=== PATIENT | male | born 1950 | race Caucasian/White ===

== ENCOUNTER → 2020-05-15 08:24 | Outpatient (BNVA) | payer MEDICARE, SELFPAY | PROVIDERS: PCP Internal Medicine; Visit Provider Hospitalist | DX: J44.9 Chronic obstructive pulmonary disease, unspecified (principal); R91.8 Other nonspecific abnormal finding of lung field; I63.9 Cerebral infarction, unspecified | CPT/HCPCS: 99212 ==

== ENCOUNTER → 2020-08-13 08:49 | Outpatient (BNVA) | payer MEDICARE, SELFPAY | PROVIDERS: PCP Internal Medicine; Visit Provider Hospitalist | DX: J41.0 Simple chronic bronchitis (principal); R91.8 Other nonspecific abnormal finding of lung field | CPT/HCPCS: 99212 ==

== ENCOUNTER 2020-08-21 09:42 | Outpatient (REF) | payer MEDICARE, SELFPAY ==
--- NOTE | ~2020-08-21 | PE_ITS ---
EXAMINATION: Fluorine-18 FDG PET/CT Scan CLINICAL INDICATION: Initial treatment management. Pulmonary nodules. PROCEDURE: 69 minutes following the intravenous administration of 15.4 mCi of fluorine 18 FDG, images from the base of the skull to the mid thighs were obtained using a combined PET/CT scanner with CT scan based attenuation correction. No oral contrast was administered. No intravenous contrast was administered. Transverse, coronal, sagittal, and volume reconstruction projections were obtained. The patient's blood glucose as determined by a finger stick, was 60 mg/dl immediately prior to injection. Total CT exam dose-length product 597.53 mGy-cm * These CT images were obtained using dose optimization techniques as appropriate, variously including the following: Automated exposure control * Adjustment of mA and/or kV according to patient size (this includes techniques or standardized protocols for targeted exams where dose is matched to indication/reason for exam; i.e. extremities or head) * Use of iterative reconstruction technique COMPARISON: No previous PET/CT scan is available for comparison. CT scan of the chest dated 07/27/2020 is available for comparison. FINDINGS: (Slice numbers described in this report are numbered superiorly to inferiorly with slice #1 in the head) NECK AND VISUALIZED HEAD: In the right parotid gland is a focus of increased FDG activity, SUVmax 6.2, slice 30/267 corresponding to a subcentimeter soft tissue focus on the CT images. Superior to this is a smaller and less intense FDG avid focus in the apex of the right parotid gland, slice 20/267 and anteriorly in the apex of the left parotid gland a third FDG avid focus of mild intensity is present, slice 30/267. No additional foci of abnormal FDG activity are present in the neck or visualized head. All the other activity in this region appears physiological. There is no cervical lymphadenopathy. THORAX: No foci of abnormal FDG activity are present in the chest. There is a solid nodule in the lingula measuring 1.4 x 0.9 cm in largest transverse dimensions with no abnormal FDG activity. This is at the lower limits of resolution of the FDG PET images. It appears unchanged compared to the prior CT scan dated 07/27/2020. A second smaller solid nodule posteriorly at the base of the left lower lobe measures 0.9 x 0.7 cm and also shows no abnormal FDG activity but is also the lower limits of resolution of the FDG PET images. This is also unchanged from 07/27/2020. Additional subcentimeter nodules visualized on that prior diagnostic CT scan are not well visualized on these nondiagnostic CT images, and all of those are much too small to be characterized on the FDG PET images. There is no pleural or pericardial fluid, or pneumothorax. There is no mediastinal, supraclavicular, or axillary lymphadenopathy. ABDOMEN AND PELVIS: No foci of abnormal FDG activity are present in the abdomen or pelvis. There is diffuse FDG activity of varying intensities present throughout the gastrointestinal tract with no suspicious focal component, likely physiological. There is diverticulosis without evidence of diverticulitis. The hollow viscera are otherwise unremarkable. The liver and spleen are unremarkable. A densely peripherally calcified gallstone is present in the neck of the gallbladder. The gallbladder is otherwise unremarkable. There is some mild perinephric stranding bilaterally, but the kidneys are otherwise unremarkable. There is a nodular opacity measures approximately 1.5 x 0.9 cm in the right adrenal gland. This is of indeterminate density on the CT images and shows no abnormal FDG activity and is probably benign. The left adrenal gland is unremarkable. The pancreas is unremarkable. There is no retroperitoneal, mesenteric, pelvic or inguinal lymphadenopathy. A small fat-containing periumbilical hernia is present. The prostate gland is enlarged measuring 5.6 cm in largest transverse dimension. There is a discrete focus of abnormal FDG activity in the right posterior aspect of the prostate gland showing SUVmax 8.4, slice 221/267. MUSCULOSKELETAL: No foci of abnormal FDG activity are present in the osseous structures. There are degenerative changes in the spine. There is a grade 1 anterolisthesis of L5 on S1. No suspicious sclerotic or lytic lesions are visualized. VASCULAR: Diffuse vascular calcifications including some coronary calcifications are noted. 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 PET/PET CT fusion skull to thigh IMPRESSION: 1. Several pulmonary nodules are visualized as described above, unchanged in appearance from 07/27/2020. The largest of these are at the lower limits of resolution of the FDG PET images and show no abnormal FDG activity suggesting a benign etiology. The other nodules seen 07/27/2020 are not well visualized, and all of these are too small to be characterized on the FDG PET images. Continued monitoring of these with diagnostic CT imaging in 3-6 months is recommended. 2. An FDG avid focus in the prostate gland is strongly suspicious for malignancy. Urologic consultation is recommended. 3. A right adrenal nodule is suggested but is not well visualized on these nondiagnostic CT images. This shows no abnormal FDG activity suggesting a benign etiology. This could be further characterized with a CT adrenal protocol, if clinically indicated. 4. Bilateral FDG avid parotid foci are present. These are nonspecific, and malignancy cannot be excluded, but benign parotid lesions such as pleomorphic adenomas or Warthin's tumors are frequently FDG avid. The bilaterality is more suggestive of Warthin's tumors. 5. No additional abnormalities suspicious for other metastatic or malignant lesions are noted. 6. Diffuse vascular calcifications including coronary are noted. 7. 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 This could be further characterized with CT angiography, if clinically indicated.
== END 2020-08-21 09:43 | disposition home or self-care (01) ==
LOC: HO.PET 09:42
PROVIDERS: PCP Internal Medicine; Visit Provider Hospitalist
DX: Z13.89 Encounter for screening for other disorder (principal)

== ENCOUNTER → 2020-11-19 09:54 | Outpatient (BNVA) | payer MEDICARE, SELFPAY | PROVIDERS: PCP Internal Medicine; Visit Provider Hospitalist | DX: R91.8 Other nonspecific abnormal finding of lung field (principal); J41.0 Simple chronic bronchitis | CPT/HCPCS: 99212 ==

== ENCOUNTER → 2021-04-09 09:23 | Outpatient (BNVA) | payer MEDICARE, SELFPAY | PROVIDERS: PCP Internal Medicine; Visit Provider Hospitalist | DX: J41.0 Simple chronic bronchitis (principal); R91.8 Other nonspecific abnormal finding of lung field | CPT/HCPCS: 99212 ==

== ENCOUNTER → 2021-04-12 08:29 | Outpatient (BNVA) | payer MEDICARE, SELFPAY | PROVIDERS: PCP Internal Medicine; Visit Provider Surgery | DX: R91.8 Other nonspecific abnormal finding of lung field (principal); I69.354 Hemiplegia and hemiparesis following cerebral infarction affecting left non-dominant side; Z79.899 Other long term (current) drug therapy; Z79.84 Long term (current) use of oral hypoglycemic drugs; Z87.891 Personal history of nicotine dependence; Z86.718 Personal history of other venous thrombosis and embolism | CPT/HCPCS: 99212 ==

== ENCOUNTER 2021-04-16 09:50 | Outpatient (REF) | payer MEDICARE, SELFPAY ==
--- NOTE | 2021-04-16 | PFT_ITS ---
FLOWS: FEV1 67% of predicted at 2.13 L. FVC 76% of predicted at 3.33 L. FEV1 to FVC ratio of 0.61. Positive bronchodilator response. LUNG VOLUMES: Total lung capacity 103% of predicted at 7.26 L. Residual volume 161% of predicted at 4.05 L. Slow vital capacity 70% of predicted at 3.21 L. Expiratory reserve volume 71% of predicted at 0.90 L. Diffusion capacity is mildly decreased, diffusion capacity adjust to normal after correction for alveolar ventilation. IMPRESSION: Moderate obstructive ventilatory defect with positive bronchodilator response. Increased residual volume suggests air trapping. Decreased diffusion capacity suggests emphysema. MD JETHRO Sandhu/MODL / [id number]
== END 2021-04-16 09:51 | disposition home or self-care (01) ==
LOC: HO.RESP 09:50
PROVIDERS: PCP Internal Medicine; Visit Provider Hospitalist
DX: Z01.818 Encounter for other preprocedural examination (principal)
CPT/HCPCS: 94060; 94727; 94729

== ENCOUNTER → 2021-05-17 09:51 | Outpatient (BNVA) | payer MEDICARE, SELFPAY | PROVIDERS: PCP Internal Medicine; Visit Provider Surgery | DX: R91.8 Other nonspecific abnormal finding of lung field (principal); I82.409 Acute embolism and thrombosis of unspecified deep veins of unspecified lower extremity; Z79.899 Other long term (current) drug therapy; Z79.84 Long term (current) use of oral hypoglycemic drugs; Z87.891 Personal history of nicotine dependence; Z86.73 Personal history of transient ischemic attack (TIA), and cerebral infarction without residual deficits | CPT/HCPCS: 99212 ==

== ENCOUNTER 2021-05-29 07:22 | Outpatient (REF) | payer MEDICARE, SELFPAY ==
--- NOTE | ~2021-05-29 | CT_ITS ---
EXAMINATION: CT CHEST WITHOUT CONTRAST CLINICAL INFORMATION: Other nonspecific abnormal finding of lung field. Pulmonary nodules. COMPARISON: CT chest 04/01/2021. TECHNIQUE: Multidetector volumetric CT imaging of the chest was done. Axial MIP volume rendering provided. Sagittal and coronal reformatted images were obtained. This CT examination was performed using dose optimization techniques as appropriate, variously including the following: *Automated exposure control *Adjustment of mA and/or kV according to patient size (this includes techniques or standardized protocols for targeted exams where dose is matched to indication/reason for exam; i.e. extremities or head) *Use of iterative reconstruction technique DLP: 170 mGy-cm FINDINGS: LUNGS: Mild emphysema. An irregular 1.2 x 0.9 cm nodule in the right upper lobe not significantly changed from most recent prior exam from 04/01/2021 but is new compared with the prior exam from 07/27/2020. New 3 mm nodule in the anterior left upper lobe (240/627). A 2 mm nodule in the superior segment of the right lower lobe is less conspicuous compared with prior. A 1.1 cm ovoid nodule in the left lower lobe is stable (400/627). Linear scarring/atelectasis in the lingula is stable. MEDIASTINUM: Normal heart size. No pericardial effusion. Coronary artery calcifications. No bulky mediastinal lymphadenopathy. Visualized thyroid is unremarkable. PLEURA: There is no pleural effusion. No pleural mass or thickening. AXILLAE: No lymphadenopathy. UPPER ABDOMEN: Cholelithiasis. Mild thickening of the left adrenal gland without nodularity. OSSEOUS STRUCTURES: Degenerative changes in the spine. CT/CT chest wo con IMPRESSION: The irregular 1.2 x 0.9 cm nodule in the right upper lobe has not significantly changed compared with the most recent exam but is new compared with the exam from 07/27/2020. This remains suspicious for malignancy. Recommend PET/CT and/or biopsy to further evaluate. New 3 mm nodule in the anterior left upper lobe. Additional nodules described above are overall stable. Extensive coronary artery calcifications. Cholelithiasis.
== END 2021-05-29 07:23 | disposition home or self-care (01) ==
LOC: HO.CT 07:22
PROVIDERS: Visit Provider Surgery
DX: R91.8 Other nonspecific abnormal finding of lung field (principal)
CPT/HCPCS: 71250

== ENCOUNTER → 2021-06-07 08:53 | Outpatient (BNVA) | payer MEDICARE, SELFPAY | PROVIDERS: PCP Internal Medicine; Visit Provider Surgery | DX: R91.8 Other nonspecific abnormal finding of lung field (principal); Z79.899 Other long term (current) drug therapy; Z87.891 Personal history of nicotine dependence | CPT/HCPCS: 99212 ==

== ENCOUNTER 2021-06-25 11:05 | Outpatient (REF) | payer MEDICARE, OTHER, SELFPAY ==
--- NOTE | ~2021-06-25 | PE_ITS ---
EXAMINATION: PET CT fusion skull to thigh Subsequent treatment management - PS CLINICAL INFORMATION: Pulmonary nodule COMPARISON: Chest CT 05/29/2021 and earlier. Prior PET CT 323 TECHNIQUE: Fingerstick blood sugar prior to exam was 85 mg/dL. 17.0 mCi fluorine-18 FDG administered IV. Following approximately 45 minutes of uptake, multibed PET acquisition was performed preceded by a non-contrast CT scan for the purposes of localization and attenuation correction. FINDINGS: Head and neck: Again seen is asymmetric enlargement of the parotid gland with a 1.2 cm mass posteriorly and a suggestion of some additional adjacent smaller masses. There continues to be asymmetric abnormal FDG uptake, maximum SUV 2.7 associated with the dominant mass, less conspicuous than on the prior study. Previously seen nodular increased uptake in the left parotid gland no longer seen. There is overall diffusely increased uptake throughout the right parotid gland relative to the left. There is asymmetric hypometabolism associated with right parietal encephalomalacia consistent with remote prior infarct. Chest: No elevated FDG uptake associated with the residual irregular 1.2 cm right upper lobe nodule in image 189/267. Maximum SUV 0.9. Irregular 4 mm nodule in the left upper lobe, new on the study 05/29/2021 is again seen in image 176/267 with no associated abnormal FDG uptake, maximum SUV 0.6. Unchanged 1.1 cm ovoid left lower lobe nodule in image 148/267 with maximum SUV 0.8. Additional smaller pulmonary nodules seen previously are not well demonstrated on the noncontrast localization CT scan performed with quiet breathing. No other areas of abnormal FDG uptake are seen. No enlarged or hypermetabolic lymphadenopathy. Coronary artery calcifications. Heart size upper limits of normal. No pleural or pericardial effusion. Abdomen/pelvis: Physiologic FDG distribution. Similar appearance of bilateral adrenal thickening. Calcified gallstone in the gallbladder. Expected excreted radiopaque tracer in the kidneys, collecting systems, and ureters. Presumably physiologic uptake within the bowel especially the sigmoid colon. Again seen is asymmetric uptake involving the right lateral peripheral zone of the prostate maximum SUV 5.1. The level degenerative changes of the spine. Extremities: Physiologic FDG distribution. Right common femoral artery aneurysm again noted. PET/PET CT fusion skull to thigh IMPRESSION: No new findings. The previously seen pulmonary nodules are not convincingly changed in size from the prior study 05/29/2021. None of these demonstrate significantly elevated FDG uptake to strongly suggest a malignant etiology although malignancy cannot be excluded. Recommend continued attention on CT follow-up. FDG avid right parotid mass is again seen. The prior study demonstrated bilateral abnormal parotid uptake suspicious for bilateral parotid tumor such as pleomorphic adenomas or Warthin's tumors. The left-sided parotid abnormality is no longer seen. There is a lesser degree of FDG uptake associated with the dominant right-sided mass. The differential remains the same. Consider ENT evaluation to guide further management. Persistent asymmetric focus of abnormal FDG uptake in the right lateral peripheral zone of the prostate suspicious for malignancy.
== END 2021-06-25 11:06 | disposition home or self-care (01) ==
LOC: HO.PET 11:05
PROVIDERS: Visit Provider Surgery
DX: Z13.89 Encounter for screening for other disorder (principal)

== ENCOUNTER → 2021-07-05 08:51 | Outpatient (BNVA) | payer MEDICARE, OTHER, SELFPAY | PROVIDERS: PCP Internal Medicine; Visit Provider Surgery | DX: R91.8 Other nonspecific abnormal finding of lung field (principal); Z79.899 Other long term (current) drug therapy; Z87.891 Personal history of nicotine dependence | CPT/HCPCS: 99212 ==

== ENCOUNTER 2021-08-05 07:19 | Outpatient (REF) | payer MEDICARE, OTHER, SELFPAY ==
--- NOTE | ~2021-08-05 | CT_ITS ---
EXAMINATION: CT CHEST WITHOUT CONTRAST CLINICAL INFORMATION: Follow-up pulmonary nodules COMPARISON: Previous chest CT May 2021 TECHNIQUE: Multidetector volumetric CT imaging of the chest was done. Axial MIP volume rendering provided. Sagittal and coronal reformatted images were obtained. This CT examination was performed using dose optimization techniques as appropriate, variously including the following: *Automated exposure control *Adjustment of mA and/or kV according to patient size (this includes techniques or standardized protocols for targeted exams where dose is matched to indication/reason for exam; i.e. extremities or head) *Use of iterative reconstruction technique DLP: 184 mGy-cm FINDINGS: DECKHAND ENGINEER: LUNGS: There is evidence of emphysema. The irregularly-shaped central right upper lobe nodule measuring 0.9 x 1.2 cm axial image 205 series 7 is stable. The oval shaped 7 x 10 mm left lower lobe nodule axial image 478 series 7 is stable. Additional smaller micronodules are stable. No new pulmonary nodule is seen. There is scarring or subsegmental atelectasis at the lung bases. There is atelectasis or scarring in the medial right lower lobe adjacent to bony osteophyte that is stable. No endobronchial or endotracheal lesion is seen. MEDIASTINUM: There is coronary artery and aortic valve calcification. The mediastinum is otherwise normal. PLEURA: There is no pleural effusion. No pleural mass or thickening. AXILLA: No lymphadenopathy. No chest wall mass. Loop recorder in the left anterior chest wall. UPPER ABDOMEN: Gallstone. Diverticulosis of the colon. OSSEOUS STRUCTURES: Degenerative changes of the spine. CT/CT chest wo con IMPRESSION: Emphysema. Stable pulmonary nodules, largest in the right upper and left lower lobes. Coronary artery and aortic valve calcification. Fleischner guidelines were followed.
== END 2021-08-05 07:20 | disposition home or self-care (01) ==
LOC: HO.CT 07:19
PROVIDERS: PCP Internal Medicine; Visit Provider Surgery
DX: R91.8 Other nonspecific abnormal finding of lung field (principal)
CPT/HCPCS: 71250

== ENCOUNTER → 2021-08-16 08:49 | Outpatient (BNVA) | payer MEDICARE, OTHER, SELFPAY | PROVIDERS: PCP Internal Medicine; Visit Provider Surgery | DX: R91.8 Other nonspecific abnormal finding of lung field (principal); Z79.899 Other long term (current) drug therapy; Z79.84 Long term (current) use of oral hypoglycemic drugs; Z87.891 Personal history of nicotine dependence | CPT/HCPCS: 99212 ==

== ENCOUNTER → 2021-09-11 09:18 | Outpatient (BNVA) | payer MEDICARE, OTHER, SELFPAY | PROVIDERS: PCP Internal Medicine; Visit Provider Hospitalist | DX: J41.0 Simple chronic bronchitis (principal); R91.8 Other nonspecific abnormal finding of lung field; F17.210 Nicotine dependence, cigarettes, uncomplicated | CPT/HCPCS: 99212 ==

== ENCOUNTER 2022-12-19 08:47 | Outpatient (AMB) | payer MEDICARE, OTHER, SELFPAY ==
[2022-12-19 09:03] VITALS: BP 136/78; PULSE 60; O2SAT 92; BMI 25.1
--- NOTE | 2022-12-19 09:03 | MHC.OFFVIS ---
Intake Vital Signs 12/19/22 09:03 Height 5 ft 11 in Weight 180 lb BMI 25.1 BP 136/78 Blood Pressure Location Rt brachial Position Sitting Pulse 60 Pulse Source Pulse Oximeter Pulse Oximetry (%) 92 Oxygen Delivery Method Room Air Intake Visit Reasons: 1 year follow up Medical Technologist Microbiology Required: No Allergies No Known Allergies Allergy (Verified 12/19/22 09:36) HPI HPI Comments History of Present Illness Details The patient is a 72-year-old gentleman with a history of COPD COPD in addition to tobacco dependency and also pulmonary nodules. Overall he is doing well. He has been using his Breo. It appears to be effective. He did try Trelegy in the past and was not as effective. He continues to have some mild dyspnea on exertion but is still able to do things outside in climbing stairs. Unfortunately, still smoking. Her about half a pack a day or so sometimes last sometimes more. It has been hard for him to quit. I have reassured him that his lung capacity is good but the potentially will catch up to him. The CT scan he had back in January 2019 demonstrated mild emphysema a elongated trachea along with calcifications of the coronary arteries in other central vessels. His pulmonary nodules are indeed stable for many years. 12/18/2022 the patient is here for a pulmonary follow-up visit. Overall the patient appears to be doing well. He stopped using his inhalers as he did not feel like they were doing much for him. He is staying active and exercising outside. Overall he is doing well. He does get short of breath with activity at times but usually stops and rest and is able to get on with his activities after that. He did have a recent CT scan of the chest demonstrating stable pulmonary nodules. Xavier is reassuring. He will follow-up with thoracic surgery sometime in the fall. At this point no further diagnostic interventions are warranted. He will have close monitoring for the pulmonary nodules but it all looks reassuring. Will follow up next year unless the patient develops any new or concerning symptoms that we can always reassess him on earlier time. [facility] Medical History Barretts esophagus Chronic anticoagulation COPD (chronic obstructive pulmonary disease) CVA (cerebral vascular accident) (~04/2020) Diabetes mellitus type 2 in nonobese Enlarged prostate History of DVT (deep vein thrombosis) Hyperlipidemia Hypertension, essential, benign Personal history of nicotine dependence Pulmonary nodules Surgical History History of bronchoscopy (~05/2021) Social History Patient Tobacco Use Status: Former Tobacco user Tobacco use type: Cigarette Years Smoked: 50 years Review of Systems Const Denies night sweats ENT Denies change in voice, Denies lip swelling, Denies mouth pain, Reports nasal congestion, Reports nasal discharge and Denies tongue swelling Card Denies chest pain and Reports dyspnea on exertion Resp Reports cough and Reports dyspnea on exertion GI Denies abdominal pain Musc Denies no additional complaints Neuro Denies Neuro-related abnormal movements, Reports Abnormal speech present, Reports behavioral changes and Reports focal weakness Psych Denies no additional complaints and Reports behavioral changes Sajan/Lymph Denies easy bleeding and Denies lymphadenopathy Aller/Immun Denies lip swelling and Denies tongue swelling Physical Exam Vital Signs: Last Vital Signs Pulse 60 12/19/22 09:03 BP 136/78 12/19/22 09:03 Pulse Ox 92 12/19/22 09:03 Oxygen Delivery Method Room Air 12/19/22 09:03 BMI result Body Mass Index 25.1 Const General: alert Neck Neck: Yes normal visual inspection, Yes full ROM and Yes no lymphadenopathy Chest Chest palpation & inspection: normal inspection of the chest Resp Auscultation: diminished lung sounds Cardio Rate: regular rate Rhythm: regular rhythm Heart sounds: S1 normal heart sound present and S2 normal heart sound present GI Palpation (GI): Soft to palpation and nontender Auscultation: normal bowel sounds Skin General skin exam: rashes and/or lesions noted Neuro Speech: Abnormal speech present Assessment & Plan Assessment & Plan (1) Pulmonary nodules: Code(s): R91.8 - Other nonspecific abnormal finding of lung field (2) COPD (chronic obstructive pulmonary disease): Code(s): J44.9 - Chronic obstructive pulmonary disease, unspecified Qualifiers: COPD type: chronic bronchitis Chronic bronchitis type: simple Qualified Code(s): J41.0 - Simple chronic bronchitis Plan MARCIA as neeeded F/U with Thoracic surgery in the Fall F/U 12 months Medications: New levalbuterol HCl 1.25 mg (3 mL) inhalation BID 180 mL 0RF 30 days J44.9 - Chronic obstructive pulmonary disease, unspecified Coding Level of Care Code Est Pt Level 4 (73934) Diagnoses Pulmonary nodules R91.8 COPD (chronic obstructive pulmonary disease) J41.0 COPD type: chronic bronchitis Chronic bronchitis type: simple Time Spent (min) 18
== END 2022-12-19 09:35 | disposition home or self-care (01) ==
PROVIDERS: PCP Internal Medicine; Visit Provider Hospitalist
DX: R91.8 Other nonspecific abnormal finding of lung field (principal); J41.0 Simple chronic bronchitis
CPT/HCPCS: 99214

== ENCOUNTER 2022-12-19 08:47 | Outpatient (AMB) | payer MEDICARE, OTHER, SELFPAY ==
[2022-12-19 09:35] VITALS: BMI 25.1
--- NOTE | 2022-12-19 09:35 | A.OFFVIS_ITS ---
Intake Vital Signs 12/19/22 09:35 Height 5 ft 11 in Weight 180 lb BMI 25.1 Intake Visit Reasons: 1 year follow up Allergies No Known Allergies Allergy (Verified 12/19/22 09:36) Medication List - Last Reconciled 12/20/22 by Rosendo Pearce MD atorvastatin 80 mg PO DAILY cyanocobalamin (vitamin B-12) 1,000 mcg PO DAILY dapagliflozin propanediol (Farxiga) 5 mg PO DAILY famotidine 20 mg PO BID fenofibrate nanocrystallized 145 mg PO DAILY folic acid 1 mg PO DAILY gabapentin 300 mg PO DAILY levalbuterol HCl 1.25 mg (3 mL) inhalation BID 30 days levetiracetam (Keppra) 1,500 mg PO BID lorazepam 0.5 mg PO DAILY PRN 1 day magnesium oxide 400 mg PO BID melatonin 3 mg PO BEDTIME PRN midodrine 5 mg PO TID HPI 1 year follow up HPI Details ?quit a year ago when he had a stroke previously smoked 1 pack per day starting at age 14up until that point.? He had a CT scan of the chest done in July of 2020 which was reviewed by me directlyshowing a 1.1 cm ovoid nodule that is smooth borderedin the left lowerlobe and no lymphadenopathy.? Afterthat, he had a PET?scan on ?which showed no increased uptake in?that nodule or elsewhere.? A follow-up CT scan of the?chest was done on?04/02/2021 which showed stability of?that 1.1 cm ovoid?nodule in the left lower lobe however there is a newspiculated 1.2 cmnodule somewhat central in the right?upper lobe.? There is no lymphadenopathy and no pleural fluid.? He didhave a navigational bronchoscopy with attempt a biopsy?in March of 2021 which was negative for making theligament see/nondiagnostic.? At that?time, he electedfor a 3 month follow-up CT scan of the chest which was?done now on 05/29/2021 and reviewed?by me directly showing a stable 1.2?x 0.9 spiculatedright upper lobepulmonary nodule somewhat centrally in the right upperlobe.? There is no?lymphadenopathy and no pleural fluid.? He tells me that he has been feeling generally well in the breathing?has been quite good. As above, chidi have a strokeabout 1 year ago in did have a thrombectomy at that time.? There is mild?residual weakness?on the left side.? He also has history of DVT and was?on Xarelto previously which was switched to Eliquis now and is still on?that.? He reports?not feeling generally good health.??He does report some weight loss ofabout 45lb sincehis stroke.? He denies decreased appetite fevers chills soaking sweats or fatigue.? He denies chest pain.? He denies shortness?of breath cough or hemoptysis.? Tells me that he cango up a flight ofstairs without stopping quite easily?except that his legs limit him a little bit.? He denies any new neurologic symptoms.? Garth have poor coordination and weakness since h is stroke.? ? At a previous visit I set up a PET scan which was done on 06/25/2021 which showed no increased uptake in the right upper lobe nodule of question SUV max 0.9.? Again compared with previous PET scan there was parotid uptake although the patient's tells me they saw an ENT did additional imaging and told them there was no intervention or follow-up needed.? Finally, we arranged for 3 month follow-up CT scan going down the observation pathway.? This scan was done on 08/05/2021 and reviewed by me directly showing no change in the 1.2 cm right upper lobe nodule as well as no change in the left lower lobe smooth bordered nodule.? There is no lymphadenopathy and no pleural fluid. Since then he was supposed to follow up in the Fall of 2021 but was admitted at [facility] and has had breakthrough seizures since that time being followed now at [facility] as well for possible MGUS. He did not follow up with me but did have a CT that I reviewed in January 2022. This shows no change in the nodule in the LLL and no other worrisome findings. His tells me that he has a second opinion for [facility]. ? [facility] Medical History Barretts esophagus Chronic anticoagulation COPD (chronic obstructive pulmonary disease) CVA (cerebral vascular accident) (~04/2020) Diabetes mellitus type 2 in nonobese Enlarged prostate History of DVT (deep vein thrombosis) Hyperlipidemia Hypertension, essential, benign Personal history of nicotine dependence Pulmonary nodules Surgical History History of bronchoscopy (~05/2021) Social History Patient Tobacco Use Status: Former Tobacco user Tobacco use type: Cigarette Years Smoked: 50 years Physical Exam Vital Signs: BMI result Body Mass Index 25.1 NAD in a wheelchair rrr ctab Assessment & Plan Assessment & Plan (1) Pulmonary nodules: Code(s): R91.8 - Other nonspecific abnormal finding of lung field Plan: I discussed the findings on the CT from January with his who does most of the talking for him. His medical history is quite complex and I think the nodules in the lung are a low priority given everything that is going on. Since his is going to [facility] anyway for a second opinion, suggested repeating his CT scan in December there and seeing me there in follow up after that (early January); that way he will have seen Dr. Kennedy and we can discuss anything further with his nodules at that time. (2) COPD (chronic obstructive pulmonary disease): Code(s): J44.9 - Chronic obstructive pulmonary disease, unspecified Qualifiers: COPD type: chronic bronchitis Chronic bronchitis type: simple Qual ified Code(s): J41.0 - Simple chronic bronchitis Plan: Advanced copd continue current regimen (3) Personal history of nicotine dependence: Comment: (former smoker - onset 14, 1ppd x 55yrs, 55pyh - quit 2019) Code(s): Z87.891 - Personal history of nicotine dependence Coding Level of Care Code Est Pt Level 4 (44897) Diagnoses Pulmonary nodules R91.8 COPD (chronic obstructive pulmonary disease) J41.0 COPD type: chronic bronchitis Chronic bronchitis type: simple Personal history of nicotine dependence Z87.891 Time Spent (min) 39
== END 2022-12-19 09:52 | disposition home or self-care (01) ==
PROVIDERS: PCP Internal Medicine; Visit Provider Surgery
DX: R91.8 Other nonspecific abnormal finding of lung field (principal); J41.0 Simple chronic bronchitis; Z87.891 Personal history of nicotine dependence

== ENCOUNTER → 2022-12-19 08:47 | Outpatient (BNVA) | payer MEDICARE, OTHER, SELFPAY | PROVIDERS: Visit Provider Surgery | DX: J41.0 Simple chronic bronchitis (principal); R91.8 Other nonspecific abnormal finding of lung field; Z87.891 Personal history of nicotine dependence | CPT/HCPCS: 99212 ==